=== PATIENT | female | born 1950 | race Hispanic/Latino ===

== ENCOUNTER 2016-08-04 09:00 | Emergency (ER) | payer OTHER ==
[2016-08-04 09:35] VITALS: RESP 18; TEMP 98.9
[2016-08-04 09:38] VITALS: O2SAT 96
--- NOTE | 2016-08-04 10:14 | ED PDOC ---
Arrival/HPI - General Chief Complaint: Syncope Time Seen by Provider: 08/04/16 09:57 Historian: Patient - History of Present Illness Narrative History of Present Illness (Text): 08/04/16 09:58 A 66 year old female, whose past medical history includes depression, presents to the emergency department complaining of multiple syncopal episodes around 0400 this morning. Patient reports she felt a cramp in the right leg this morning when getting up to go to the bathroom. Patient walked to the bathroom without difficulty and once getting to the bathroom she fainted and fell down. Patient reports after she came to it again she fainted and fell again. Patient partner heard to fall and came to the bathroom to help her. Once she came back in consciousness, she had cold sweats and felt dizzy so she sat up for 30 minutes. Once she went to get up again she fainted for a 3rd time. Patient is unsure if she hit her head but does complain of mild soreness to the back of her head. Patient says when walking she experience pain to her right knee and right foot. She mentions yesterday afternoon she had 3-4 episodes of sharp pain to the left rib, which resolved. She denies any chest pain, fever, shortness of breath, neck pain, back pain, or other complaints at this time. Patient mentions she recently changed her anti-depression medication. PMD: None Time/Duration: 4-6 hours Symptom Onset: Sudden Symptom Course: Unchanged Quality: Other Activities at Onset: Rest Context: Home, Fainted Past Medical History - Provider Review Nursing Documentation Reviewed: Yes - Infectious Disease Hx of Infectious Diseases: None - Reproductive Menopause: Yes - Neurological Hx Syncope: Yes - Psychiatric Hx Anxiety: Yes Hx Depression: Yes Hx Substance Use: No - Surgical History Hx Appendectomy: Yes Hx Tonsillectomy: Yes - Anesthesia Hx Anesthesia: Yes Hx Anesthesia Reactions: No Family/Social History - Physician Review Nursing Documentation Reviewed: Yes Family/Social History: Unknown Family HX Smoking Status: Unknown If Ever Smoked Hx Alcohol Use: No Hx Substance Use: No Allergies/Home Meds Allergies/Adverse Reactions: Allergies No Known Allergies Allergy (Verified 08/04/16 09:36) Home Medications: Home Meds Medication Instructions Recorded Confirmed Vortioxetine Hydrobromide 5 mg PO DAILY 08/04/16 08/04/16 [Trintellix] Review of Systems - Review of Systems Constitutional: Other (soreness to the posterior head). absent: Fevers Respiratory: absent: SOB Cardiovascular: Syncope. absent: Chest Pain Musculoskeletal: Other (pain to right knee and foot; 3-4 episodes of sharp pain to the left ribs). absent: Back Pain, Neck Pain Physical Exam Vital Signs Reviewed: Yes Vital Signs Temp Pulse Resp BP Pulse Ox 08/04/16 13:00 64 18 105/68 96 08/04/16 10:28 68 18 103/65 96 08/04/16 09:38 98.9 F 74 18 101/67 96 08/04/16 09:29 98.9 F 74 18 101/67 100 Temperature: Afebrile Blood Pressure: Normal Pulse: Regular Respiratory Rate: Normal Appearance: Positive for: Well-Appearing, Non-Toxic, Comfortable Pain Distress: None Mental Status: Positive for: Alert and Oriented X 3 - Systems Exam Head: Present: Atraumatic, Normocephalic Pupils: Present: PERRL Extroacular Muscles: Present: EOMI Conjunctiva: Present: Normal Mouth: Present: Moist Mucous Membranes Neck: Present: Normal Range of Motion. No: MIDLINE TENDERNESS, Bruit Respiratory/Chest: Present: Clear to Auscultation, Good Air Exchange. No: Respiratory Distress, Accessory Muscle Use Cardiovascular: Present: Regular Rate and Rhythm, Normal S1, S2. No: Murmurs Abdomen: Present: Normal Bowel Sounds. No: Tenderness, Distention, Peritoneal Signs Back: No: Midline Tenderness, Paraspinal Tenderness Upper Extremity: Present: Normal Inspection. No: Cyanosis, Edema Lower Extremity: Present: Tenderness (tenderness with palpation to the right metatarsal joint). No: Edema Neurological: Present: GCS=15, CN II-XII Intact, Speech Normal Skin: Present: Warm, Dry, Normal Color. No: Rashes Psychiatric: Present: Alert, Oriented x 3, Normal Insight, Normal Concentration Medical Decision Making ED Course and Treatment: 08/04/16 09:58 Impression: A 66 year old female with multiple syncopal episodes. Differential Diagnosis include but are not limited to: syncope vs. cardiac arrhythmia vs. less likely PE vs. intracranial abnormalities Plan: -- EKG -- Head CT -- Chest X-ray -- Right Foot X-ray -- Labs -- Urinalysis -- Tylenol -- Reassess and disposition Progress Notes: EKG: Ordered, reviewed, and independently interpreted the EKG. Rate : 59 BPM Rhythm : Sinus Bradycardia Interpretation : No ST-segment elevations or depressions, no T-wave inversions, normal intervals. Comparison : No previous EKG for comparison. 08/04/16 11:[address]: Creator : Tesha Paige MD COMPARISON: None available. FINDINGS: HEMORRHAGE: No intracranial hemorrhage. BRAIN: Barfield-white matter differentiation is preserved. There is no mass, mass effect or abnormal extra-axial fluid collection. VENTRICLES: The ventricles are normal in size, shape and configuration. CALVARIUM: There is no calvarial fracture or extracranial soft tissue swelling. PARANASAL SINUSES: Predominantly clear. MASTOID AIR CELLS: Predominantly clear. OTHER FINDINGS: None. IMPRESSION: No acute intracranial abnormality. 08/04/16 11:10 Chest X-ray: Creator : Terry Rivera MD COMPARISON: None available. FINDINGS: LUNGS: Clear. PLEURA: No pneumothorax or pleural fluid seen. CARDIOVASCULAR: Normal. OSSEOUS STRUCTURES: No significant abnormalities. VISUALIZED UPPER ABDOMEN: Normal. OTHER FINDINGS: None. IMPRESSION: No active disease. Right Foot X-ray: Creator : Terry Rivera MD COMPARISON: None. FINDINGS: BONES: Normal. No fracture. JOINTS: Normal. SOFT TISSUES: Normal. OTHER FINDINGS: None. IMPRESSION: Normal right foot radiographs. 08/04/16 11:47 Patient D-Dimer is 4.72. Will obtain Angio Chest CT and Bilateral Lower extremity Duplex Ultrasound. 08/04/16 12:37 Ultrasound called emergency department to notify us patient bilateral lower extremity is negative for DVT. 08/04/16 13:[address]: Creator : Terry Rivera MD COMPARISON: None available. FINDINGS: PULMONARY ARTERIES: Unremarkable. No pulmonary embolism. AORTA: No acute findings. No thoracic aortic aneurysm. LUNGS: Unremarkable. No nodule, mass or pulmonary consolidation. PLEURAL SPACES: Unremarkable. No effusion or pneuomothorax. HEART: Unremarkable. No cardiomegaly. No significant pericardial effusion. LYMPH NODES: No lymphadenopathy. BONES, CHEST WALL: Unremarkable. No fracture or destructive lesion OTHER FINDINGS: Unremarkable. IMPRESSION: Unremarkable CT pulmonary angiogram. No pulmonary embolus. 08/04/16 13:40 On re-evaluation, the patient feels better and is in no acute distress. Patient was offered admission but patient states she rather go home and follow up out patient. Patient given referral for Dr. Barr. I explain to the patient the risk after a syncopal episode, who expresses understanding. Patient was instructed to follow up with physician/clinic in 1-2 days or return if symptoms worsen or new concerning symptoms arise. - Lab Interpretations Lab Results: 08/04/16 10:35 08/04/16 10:35 Lab Results 08/04/16 10:35: Sodium 137, Potassium 4.1, Chloride 101, Carbon Dioxide 27, Anion Gap 13, BUN 17, Creatinine 0.7, Est GFR ( Amer) > 60, Est GFR (Non- Af Amer) > 60, Random Glucose 89, Calcium 9.4, Magnesium 2.2, Total Bilirubin 0.9, AST 48 H, ALT 41, Alkaline Phosphatase 41, Lactate Dehydrogenase 590, Total Creatine Kinase 197, Troponin I < 0.01, Total Protein 7.6, Albumin 4.3, Globulin 3.3, Albumin/Globulin Ratio 1.3 08/04/16 10:35: Urine Color Yellow, Urine Appearance Clear, Urine pH 6.5, Ur Specific Norman <= 1.005, Urine Protein Negative, Urine Glucose (UA) Negative, Urine Ketones Negative, Urine Blood Negative, Urine Nitrate Negative, Urine Bilirubin Negative, Urine Urobilinogen 0.2, Ur Leukocyte Esterase Negative 08/04/16 10:35: D-Dimer, Quantitative 4.72 H 08/04/16 10:35: WBC 9.0, RBC 4.38, Hgb 13.7, Hct 40.2, MCV 91.8, MCH 31.3, MCHC 34.1, RDW 12.6, Plt Count 205, MPV 10.2, Gran % 87.0 H, Lymph % (Auto) 7.5 L, Kinney % (Auto) 5.3, Eos % (Auto) 0.1 L, Baso % (Auto) 0.1, Gran # 7.83 H, Lymph # 0.7 L, Kinney # 0.5, Eos # 0.0, Baso # 0.01 I have reviewed the lab results: Yes - RAD Interpretation Radiology Orders: 08/04/16 10:08 CHEST ONE VIEW [RAD] Stat FOOT RIGHT 3 VIEWS ROUTINE [RAD] Stat 08/04/16 10:09 HEAD W/O CONTRAST [CT] Stat 08/04/16 11:47 DUPLEX LOWER EXTRM VEIN BILAT [US] Stat 08/04/16 11:48 ANGIO CHEST PE PROTOCOL [CT] Stat - Medication Orders Current Medication Orders: Discontinued Medications Acetaminophen (Tylenol 325mg Tab) 650 mg PO STAT STA Stop: 08/04/16 10:10 Last Admin: 08/04/16 10:22 Dose: 650 mg Iodixanol (Visipaque 320 Mg/Ml 100 Ml) Confirm Administered Dose 100 ml IV .STK- MED ONE Stop: 08/04/16 12:32 - Scribe Statement The provider has reviewed the documentation as recorded by the Scribe Jamil Gleason Provider Scribe Attestation: All medical record entries made by the Scribe were at my direction and personally dictated by me. I have reviewed the chart and agree that the record accurately reflects my personal performance of the history, physical exam, medical decision making, and the department course for this patient. I have also personally directed, reviewed, and agree with the discharge instructions and disposition. Disposition/Present on Arrival - Present on Arrival Any Indicators Present on Arrival: No History of DVT/PE: No History of Uncontrolled Diabetes: No Urinary Catheter: No History of Decub. Ulcer: No History Surgical Site Infection Following: None - Disposition Have Diagnosis and Disposition been Completed?: Yes Diagnosis: Syncope Disposition: HOME/ ROUTINE Disposition Time: 13:40 Patient Plan: Discharge Condition: IMPROVED Discharge Instructions (ExitCare): Syncope (ED) Additional Instructions: Ms Ureña, thank you for letting us take care of you today. Your provider was Dr. Cha. You were treated for Syncope. The emergency medical care you received today was directed at your acute symptoms. If you were prescribed any medication, please fill it and take as directed. It may take several days for your symptoms to resolve. Return to the Emergency Department if your symptoms worsen, do not improve, or if you have any other problems. Please contact your doctor or call one of the physicians/clinics you have been referred to that are listed on the Patient Visit Information form that is included in your discharge packet. Bring any paperwork you were given at discharge with you along with any medications you are taking to your follow up visit. Our treatment cannot replace ongoing medical care by a primary care provider (PCP) outside of the emergency department. Thank you for allowing the [facility] team to be part of your care today. If you had an X-Ray or CT scan: A Radiologist will review the ED reading if any change in treatment is needed we will contact you. If you had a blood, urine, or wound culture: It will take several days for the results, if any change in treatment is needed we will contact you. If you had an STI test: It will take 48 hours for the results. Please call after 1 week if you have not heard back. Referrals: [facility] [Outside] - Follow up with primary Rajesh Barr DO [Staff Provider] - Follow up with primary Forms: [facility] Discharge (Jamaican), WORK NOTE
[2016-08-04 10:41] LABS: ADD MANUAL DIFF? NO
[2016-08-04 10:44] LABS: BASO # 0.01 K/mm3 (0.0-2.0); BASO % 0.1 % (0.0-3.0); EOS % 0.1 % (1.5-5.0); GRAN # 7.83 (1.4-6.5); HEMATOCRIT 40.2 % (36.0-48.0); LYMPH # 0.7 (1.2-3.4); LYMPH % 7.5 % (22.0-35.0); MEAN CELL VOLUME 91.8 fL (80.0-105.0); MEAN CORPUSCULAR HEMOGLOBIN 31.3 pg (25.0-35.0); MEAN CORPUSCULAR HGB CONC 34.1 g/dl (31.0-37.0); MEAN PLATELET VOLUME 10.2 fl (7.0-11.0); MONO # 0.5 (0.1-0.6); MONO % 5.3 % (1.0-6.0); PH,URINE 6.5 (4.7-8.0); PLATELET COUNT 205 10^3/uL (120.0-450.0); RED CELL DISTRIBUTION WIDTH 12.6 % (11.5-14.5); URINE BILIRUBIN NEGATIVE (NEGATIVE); URINE BLOOD NEGATIVE (NEGATIVE); URINE GLUCOSE (UA) NEGATIVE (NEGATIVE); URINE KETONE NEGATIVE (NEGATIVE); URINE LEUKOCYTE ESTERASE NEGATIVE Leu/uL (NEGATIVE); URINE PROTEIN NEGATIVE mg/dL (<30 mg/dL); URINE UROBILINOGEN 0.2 E.U./dL (<1 E.U./dL)
[2016-08-04 10:53] LABS: ALB/GLOB RATIO 1.3 (1.1-1.8); ALKALINE PHOSPHATASE 41 U/L (38-133); ALT/SGPT 41 U/L (7-56); AST/SGOT 48 U/L (15-39); BILIRUBIN,TOTAL 0.9 mg/dL (0.2-1.3); BLOOD UREA NITROGEN 17 mg/dL (7-21); CALCIUM 9.4 mg/dL (8.4-10.5); CARBON DIOXIDE 27 mmol/L (21-33); CHLORIDE 101 mmol/L (98-107); GFR AFRICAN-AMERICAN > 60; GLUCOSE,RANDOM 89 mg/dL (70-110); MAGNESIUM 2.2 mg/dL (1.7-2.2); POTASSIUM 4.1 mmol/L (3.6-5.0); SODIUM 137 mmol/L (132-148); TOTAL PROTEIN 7.6 g/dL (5.8-8.3)
--- NOTE | 2016-08-04 11:01 | CT ---
PROCEDURE: CT HEAD WITHOUT CONTRAST. HISTORY: Syncope with head injury r/o fx COMPARISON: None available. TECHNIQUE: Axial computed tomography images were obtained through the head/brain without intravenous contrast. Radiation dose: Total exam DLP = 757.09 mGy-cm. This CT exam was performed using one or more of the following dose reduction techniques: Automated exposure control, adjustment of the mA and/or kV according to patient size, and/or use of iterative reconstruction technique. FINDINGS: HEMORRHAGE: No intracranial hemorrhage. BRAIN: Barfield-white matter differentiation is preserved. There is no mass, mass effect or abnormal extra-axial fluid collection. VENTRICLES: The ventricles are normal in size, shape and configuration. CALVARIUM: There is no calvarial fracture or extracranial soft tissue swelling. PARANASAL SINUSES: Predominantly clear. MASTOID AIR CELLS: Predominantly clear. OTHER FINDINGS: None. IMPRESSION: No acute intracranial abnormality.
--- NOTE | 2016-08-04 11:11 | RAD ---
PROCEDURE: Right Foot Radiographs. HISTORY: fall r/o fx COMPARISON: None. FINDINGS: BONES: Normal. No fracture. JOINTS: Normal. SOFT TISSUES: Normal. OTHER FINDINGS: None. IMPRESSION: Normal right foot radiographs.
--- NOTE | 2016-08-04 11:11 | RAD ---
PROCEDURE: CHEST RADIOGRAPH, 1 VIEW HISTORY: syncope COMPARISON: None available. FINDINGS: LUNGS: Clear. PLEURA: No pneumothorax or pleural fluid seen. CARDIOVASCULAR: Normal. OSSEOUS STRUCTURES: No significant abnormalities. VISUALIZED UPPER ABDOMEN: Normal. OTHER FINDINGS: None. IMPRESSION: No active disease.
[2016-08-04 11:12] LABS: TROPONIN I < 0.01 ng/mL
[2016-08-04 11:15] LABS: URINE APPEARANCE CLEAR (CLEAR); URINE COLOR YELLOW (YELLOW)
[2016-08-04] MEDS ORDERED: Iodixanol 320 MG/ML 100 ML BOTTLE IV ONE (12:31)
[2016-08-04 13:07] VITALS: BP 105/68; PULSE 64
--- NOTE | 2016-08-04 13:11 | CT ---
PROCEDURE: CT Chest with contrast (Pulmonary Angiogram) HISTORY: r/o PE COMPARISON: None available. TECHNIQUE: Axial computed tomography images were obtained of the chest in the pulmonary arterial phase of enhancement. Coronal and sagittal reformatted images were created and reviewed. Intravenous contrast dose: 100 cc of Visipaque Radiation dose: Total exam DLP = 159 mGy-cm. This CT exam was performed using one or more of the following dose reduction techniques: Automated exposure control, adjustment of the mA and/or kV according to patient size, and/or use of iterative reconstruction technique. FINDINGS: PULMONARY ARTERIES: Unremarkable. No pulmonary embolism. AORTA: No acute findings. No thoracic aortic aneurysm. LUNGS: Unremarkable. No nodule, mass or pulmonary consolidation. PLEURAL SPACES: Unremarkable. No effusion or pneuomothorax. HEART: Unremarkable. No cardiomegaly. No significant pericardial effusion. LYMPH NODES: No lymphadenopathy. BONES, CHEST WALL: Unremarkable. No fracture or destructive lesion OTHER FINDINGS: Unremarkable. IMPRESSION: Unremarkable CT pulmonary angiogram. No pulmonary embolus.
--- NOTE | 2016-08-04 17:11 | CARD ---
APPROVED REPORT EKG Measurement Heart [id number] <Conclusion> Sinus bradycardia Otherwise normal ECG
--- NOTE | 2016-08-04 18:32 | US ---
HISTORY: Leg pain and swelling. Evaluate for DVT PHYSICIAN(S): Ricardo Patel MD. TECHNIQUE: Duplex sonography and color-flow Doppler with graded compression were used to evaluate the deep venous systems of both lower extremities. FINDINGS: The visualized deep venous systems of both lower extremities are sonographically normal and compressible. Normal wave forms and augmentation are seen. There is no sonographic evidence for deep venous thrombosis in the visualized segments of both lower extremities. IMPRESSION: No sonographic evidence for deep venous thrombosis in the visualized segments of both lower extremities.
== END 2016-08-04 14:08 | disposition home or self-care (01) ==
LOC: MERGE 09:00 → ED 09:00
DX: R55 Syncope and collapse (principal); F41.9 Anxiety disorder, unspecified
CPT/HCPCS: 70450; 71010; 71275; 73630; 80053; 81003; 82550; 83615; 83735; 84484; 85025; 85378; 93005; 93970; 99285; Q9967